=== PATIENT | male | born 1945 | race African-American/Black ===

== ENCOUNTER → 2016-06-12 | Outpatient (CLI) | payer MEDICARE, OTHER ==
[~2016-06-12] MED LIST: CPMMACHINE; GABA300C5 PO; GABA600T PO; HYDR-3366 PO; OXYC1TAB63 PO; RANI300C PO; SERT-132 PO; SIMV5TAB3 PO; WALKER WHEELS/F1 MIS; XARE10TA PO; ZOLP10TA3 PO
== END ==
LOC: CLAB 11:19
PROVIDERS: ATTEND Radiology Radiation Oncology
DX: C61 Malignant neoplasm of prostate (principal)
CPT/HCPCS: 36415; 84153

== ENCOUNTER → 2017-01-26 | Outpatient (CLI) | payer MEDICARE, OTHER | LOC: CLAB 15:28 | PROVIDERS: ATTEND Urology | DX: C61 Malignant neoplasm of prostate (principal) | CPT/HCPCS: 36415; 84153 ==